=== PATIENT | female | born 1990 | race Caucasian/White ===

== ENCOUNTER 2023-02-06 19:09 | Emergency (ER) | payer BC ==
[~2023-02-06] VITALS: Ht 167.6 cm; Wt 99.8 kg
[2023-02-06 19:55] LABS: BASO # 0.1 10*3/uL (0.0-0.1); BASO % 0.5 % (0.0-1.0); EOS # 0.3 10*3/uL (0.0-0.4); EOS % 2.6 % (1.0-4.0); LYMPH # 2.6 10*3/uL (1.3-4.4); LYMPH % 26.2 % (27.0-41.0); MEAN CELL VOLUME 89.5 fl (81.0-99.0); MEAN CORPUSCULAR HGB 28.6 pg (27.0-31.0); MEAN PLATELET VOLUME 9.8 fl (9.6-12.3); MONO # 0.6 10*3/uL (0.1-1.0); MONO % 5.8 % (3.0-9.0); NEUT # 6.3 10*3/uL (2.3-7.9); NEUT % 64.8 % (47.0-73.0); PLATELET COUNT AUTOMATED 313 10*3/uL (130-400); RED BLOOD COUNT 4.58 10*6/uL (4.10-5.10); RED CELL DISTRI WIDTH 14.6 % (0-14.5); WHITE BLOOD COUNT 9.8 10*3/uL (4.8-10.8)
[2023-02-06 20:14] LABS: ACT PARTIAL THROMBO TIME 26.4 SECONDS (20.0-32.1)
[2023-02-06 20:16] LABS: ALKALINE PHOSPHATASE 104 U/L (46-116); BUN 9 mg/dl (9-23); CHLORIDE 104 mmol/L (98-107); LIPASE 36 U/L (12-53); POTASSIUM 3.5 mmol/L (3.4-5.1); SGPT/ALT 20 U/L (10-49); TOTAL PROTEIN 6.9 gm/dL (6.0-8.0)
[2023-02-06] MEDS ORDERED: PREDNISONE20 M1 PO (20:34)
== END 2023-02-06 21:30 | disposition home or self-care (01) ==
LOC: ED 19:09
PROVIDERS: Internal Medicine
DX: F41.9 Anxiety disorder, unspecified (principal); T78.1XXA Other adverse food reactions, not elsewhere classified, initial encounter; R06.02 Shortness of breath; Z88.8 Allergy status to other drugs, medicaments and biological substances; X58.XXXA Exposure to other specified factors, initial encounter

== ENCOUNTER 2024-02-13 02:57 | Emergency (ER) | payer BC ==
[~2024-02-13] VITALS: Ht 167.6 cm; Wt 104.3 kg
[2024-02-13 03:29] LABS: BASO % 0.2 % (0.0-1.0); EOS # 0.2 10*3/uL (0.0-0.4); EOS % 1.8 % (1.0-4.0); HEMATOCRIT 40.7 % (37.0-47.0); LYMPH # 0.6 10*3/uL (1.3-4.4); LYMPH % 6.5 % (27.0-41.0); MEAN CORPUSCULAR HGB 27.9 pg (27.0-31.0); MEAN PLATELET VOLUME 9.5 fl (9.6-12.3); MONO # 0.8 10*3/uL (0.1-1.0); MONO % 7.9 % (3.0-9.0); NEUT # 8.2 10*3/uL (2.3-7.9); NEUT % 83.3 % (47.0-73.0); PLATELET COUNT AUTOMATED 228 10*3/uL (130-400); RED BLOOD COUNT 4.52 10*6/uL (4.10-5.10); RED CELL DISTRI WIDTH 14.7 % (0-14.5); WHITE BLOOD COUNT 9.8 10*3/uL (4.8-10.8)
[2024-02-13 03:52] LABS: ALKALINE PHOSPHATASE 104 U/L (46-116); BUN 6 mg/dl (9-23); CHLORIDE 106 mmol/L (98-107); LIPASE 26 U/L (12-53); POTASSIUM 3.6 mmol/L (3.4-5.1); SGPT/ALT 22 U/L (5-49); TOTAL PROTEIN 6.7 gm/dL (6.0-8.0)
[2024-02-13] MEDS ORDERED: MAGNESIUM OXIDE 400 MG TAB PO ONE (04:00)
== END 2024-02-13 05:13 | disposition home or self-care (01) ==
LOC: ED 02:57
PROVIDERS: Internal Medicine
DX: R19.7 Diarrhea, unspecified (principal); E83.42 Hypomagnesemia; Z88.8 Allergy status to other drugs, medicaments and biological substances; Z91.010 Allergy to peanuts

== ENCOUNTER → 2024-02-13 | Outpatient (CLI) | payer BC ==
[~2024-02-13] MED LIST: PREDNISONE20 M1 PO
== END | disposition home or self-care (01) ==
LOC: LAB 14:50
PROVIDERS: ATTEND Internal Medicine
DX: R19.7 Diarrhea, unspecified (principal)

== ENCOUNTER 2024-03-04 10:10 | Emergency (ER) | payer BC ==
[~2024-03-04] VITALS: Ht 167.6 cm; Wt 104.3 kg
[2024-03-04 11:48] LABS: BASO # 0.1 10*3/uL (0.0-0.1); BASO % 0.6 % (0.0-1.0); EOS # 0.2 10*3/uL (0.0-0.4); EOS % 1.8 % (1.0-4.0); HEMATOCRIT 45.1 % (37.0-47.0); LYMPH # 2.3 10*3/uL (1.3-4.4); LYMPH % 24.3 % (27.0-41.0); MEAN CELL VOLUME 89.3 fl (81.0-99.0); MEAN CORPUSCULAR HGB 28.3 pg (27.0-31.0); MEAN CORPUSCULAR HGB CONC 31.7 g/dl (33.0-37.0); MEAN PLATELET VOLUME 9.8 fl (9.6-12.3); MONO # 0.7 10*3/uL (0.1-1.0); MONO % 7.3 % (3.0-9.0); NEUT # 6.2 10*3/uL (2.3-7.9); NEUT % 65.8 % (47.0-73.0); PLATELET COUNT AUTOMATED 357 10*3/uL (130-400); RED BLOOD COUNT 5.05 10*6/uL (4.10-5.10); RED CELL DISTRI WIDTH 14.6 % (0-14.5); WHITE BLOOD COUNT 9.4 10*3/uL (4.8-10.8)
[2024-03-04 12:00] LABS: ACT PARTIAL THROMBO TIME 26.7 SECONDS (20.0-32.1)
[2024-03-04 12:27] LABS: BUN 8 mg/dl (9-23); CHLORIDE 106 mmol/L (98-107); POTASSIUM 3.9 mmol/L (3.4-5.1)
[2024-03-04] MEDS ORDERED: ATARAX,VISTARIL50 MG PO (13:03)
== END 2024-03-04 12:58 | disposition home or self-care (01) ==
LOC: ED 10:10
PROVIDERS: Nurse Practitioner
DX: R07.89 Other chest pain (principal); F41.9 Anxiety disorder, unspecified; Z91.048 Other nonmedicinal substance allergy status; Z91.010 Allergy to peanuts; Z88.8 Allergy status to other drugs, medicaments and biological substances; Z79.899 Other long term (current) drug therapy

== ENCOUNTER → 2024-11-12 | Outpatient (CLI) | payer BC ==
[~2024-11-12] MED LIST changes: +ATARAX,VISTARIL50 MG PO
[2024-11-12 10:38] LABS: BASO % 0.3 % (0.0-1.0); EOS # 0.1 10*3/uL (0.0-0.4); EOS % 1.5 % (1.0-4.0); HEMATOCRIT 41.7 % (37.0-47.0); MEAN CELL VOLUME 87.8 fl (81.0-99.0); MEAN CORPUSCULAR HGB 27.8 pg (27.0-31.0); MEAN CORPUSCULAR HGB CONC 31.7 g/dl (33.0-37.0); MEAN PLATELET VOLUME 9.6 fl (9.6-12.3); MONO # 0.4 10*3/uL (0.1-1.0); MONO % 4.5 % (3.0-9.0); NEUT # 6.8 10*3/uL (2.3-7.9); NEUT % 72.1 % (47.0-73.0); PLATELET COUNT AUTOMATED 328 10*3/uL (130-400); RED BLOOD COUNT 4.75 10*6/uL (4.10-5.10); RED CELL DISTRI WIDTH 13.3 % (0-14.5); WHITE BLOOD COUNT 9.4 10*3/uL (4.8-10.8)
[2024-11-12 10:49] LABS: BILIRUBIN Negative (Negative); BLOOD Negative (Negative); CLARITY Cloudy (Clear); COLOR Yellow (Yellow); GLUCOSE Negative (Negative); KETONE Trace (Negative); LEUKO ESTERASE 2+ (Negative); NITRITE Negative (Negative); PH 7.5 (4.5-8.0)
[2024-11-12 11:04] LABS: BACTERIA 3+; EPITHELIAL CELLS 16-20; RBC 0-2 rbc/hpf (0-2); WBC 16-20 wbc/hpf (0-5)
== END | disposition home or self-care (01) ==
LOC: LAB 10:03
PROVIDERS: ATTEND Obstetrics & Gynecology
DX: Z34.91 Encounter for supervision of normal pregnancy, unspecified, first trimester (principal); Z3A.10 10 weeks gestation of pregnancy

== ENCOUNTER → 2024-12-30 | Outpatient (CLI) | payer BC ==
[2025-01-01 01:06] LABS: AFP MOM 0.67 (.); AFP VALUE 22.9 ng/mL (.); DIA MOM 1.15 (.); DIA VALUE 147.76 pg/mL (.); DSR (BY AGE) 1 IN 338 (.); DSR (SECOND TRIMESTER) 1 IN 947 (.); GESTATIONAL AGE BASED ON EDD (.); HCG MOM 0.94 (.); HCG VALUE 22634 mIU/mL (.); INSULIN DEPENDENT DIABETES No (.); MULTIPLE GESTATION No (.); OSBR RISK 1 IN 10000 (.); RACE Caucasian (.); T18 RISK Not increased (.); TEST RESULTS *Screen Negative* (.); UE3 MOM 1.13 (.); UE3 VALUE 1.63 ng/mL (.); WEIGHT 217 lbs (.)
== END | disposition home or self-care (01) ==
LOC: LAB 09:30
PROVIDERS: ATTEND Nurse Practitioner Family
DX: Z36.1 Encounter for antenatal screening for raised alphafetoprotein level (principal); R82.90 Unspecified abnormal findings in urine; R73.09 Other abnormal glucose; Z78.9 Other specified health status; Z3A.14 14 weeks gestation of pregnancy